=== PATIENT | male | born 2000 | race African-American/Black ===

== ENCOUNTER 2018-10-16 09:09 | Emergency (ER) | payer OTHER ==
[~2018-10-16] VITALS: Ht 170.2 cm; Wt 72.6 kg
--- NOTE | 2018-10-16 09:09 | NUR ---
Pt placed in bed 5 with [employer] Officers
[2018-10-16 09:18] VITALS: BP_SYST 146
--- NOTE | 2018-10-16 09:20 | NUR ---
Written and verbal consent obtained from patient for blood alcohol, name and verified by patient. Disinfected patient's skin with betadine that did not contain alcohol or other volatile organic compound. Collected the blood from the subject named by venipuncture, in the presence of Officer Yonas. Used a sterile, dry hypodermic needle and dry vacuum blood collection. The dry vacuum blood collection was supplied by the officer named above. Withdrew a specimen of blood from RAC of the subject named above. Inverted the blood tube several times to ensure that the preservative and anticoagulant were thoroughly mixed in the blood specimen. I initialed the blood tube label for identification. The labeled blood tube was handed directly to the Officer named above. The blood tube stopper remained in place while I had possession of the blood tube. The Officer placed tube into envelope and sealed it in my presence. Envelope initialed by myself and Officer named above. Patient tolerated well, bandage applied, and bleeding controlled.
--- NOTE | 2018-10-16 09:28 | NUR ---
ER Dr. Larios at bedside examining patient.
[2018-10-16 09:41] VITALS: BP_SYST 146
--- NOTE | 2018-10-16 09:41 | NUR ---
Patient given written and verbal discharge instructions and verbalizes understanding. ER MD discussed with patient the results and treatment provided. Patient in stable condition. ID arm band removed. No Rx given. Patient educated on pain management and to follow up with PMD. Pain Scale 0. Opportunity for questions provided and answered. Pt left in handcuffs with [employer] Officers in stable condition
== END 2018-10-16 09:41 ==
LOC: SED 09:09
DX: S60.219A Contusion of unspecified wrist, initial encounter (principal); X58.XXXA Exposure to other specified factors, initial encounter; Y93.89 Activity, other specified; Y92.89 Other specified places as the place of occurrence of the external cause; Y99.8 Other external cause status
CPT/HCPCS: 99283